=== PATIENT | female | born 1990 | race Caucasian/White ===

== ENCOUNTER → 2023-09-10 12:12 | Outpatient (BNVA) | payer OTHER, SELFPAY | PROVIDERS: PCP Family Medicine; Visit Provider Internal Medicine Rheumatology | DX: Z79.899 Other long term (current) drug therapy (principal); M19.90 Unspecified osteoarthritis, unspecified site | CPT/HCPCS: 36415; 72202; 73130; 73562; 73630; 80076; 82306; 82565; 83036; 85025; 85651; 86140; 86200; 86431; 86480; 86704; 86803; 86812; 87340 ==

== ENCOUNTER → 2024-02-25 13:34 | Outpatient (BNVA) | payer OTHER, SELFPAY | PROVIDERS: PCP Family Medicine; Visit Provider Obstetrics & Gynecology | DX: Z87.42 Personal history of other diseases of the female genital tract (principal); N94.6 Dysmenorrhea, unspecified; N92.0 Excessive and frequent menstruation with regular cycle; Z98.890 Other specified postprocedural states; D25.9 Leiomyoma of uterus, unspecified | CPT/HCPCS: 76830 ==

== ENCOUNTER → 2024-04-14 15:14 | Outpatient (BNVA) | payer OTHER, SELFPAY | PROVIDERS: PCP Family Medicine; Visit Provider Internal Medicine | DX: M06.041 Rheumatoid arthritis without rheumatoid factor, right hand (principal); M06.042 Rheumatoid arthritis without rheumatoid factor, left hand | CPT/HCPCS: 36415; 80076; 82565; 85025; 85651; 86140 ==

== ENCOUNTER 2024-06-07 11:18 | Observation (INO) | payer OTHER, SELFPAY ==
--- NOTE | 2024-05-30 14:27 | ANES.PREANE2 ---
Pre-Anesthetic Assessment Height/Weight: Height 5 ft 9 in Preop Diagnosis: Dysmenorrhea Operation Date: 06/07/24 07:10 Proposed Procedures p Total Vaginal Hysterectomy 13352, D25.1(Not Applicable) - Andera Ferrari MD Was Beta Any taken within 24 hours: N/A Was Clonidine taken within 24 hours: N/A Social Tobacco and No alcohol Exam alert, oriented x 3, clear to auscultation bilaterally and regular rate & rhythm Airway Submandibular: within normal limits Cervical ROM: within normal limits Mallampati: Class II Dentition: full Anesthetic Plan ASA status: 2 Anesthesia: General Other: No prior issues with anesthesia Plan to be n.p.o. at midnight prior to surgery History of rheumatoid arthritis, states it is mainly in her back and legs. On chronic hydrocodone History of Paget's bone disease Current smoker METs greater than 4 Labs 04/14/2024 reviewed and acceptable for procedure Plan for general anesthesia Medications/Allergies Home Medications Medication Instructions Recorded Confirmed Last Taken Type clonazepam 1 mg tablet 1 mg PO DAILY 09/10/23 05/30/24 05/30/24 History diclofenac sodium 75 mg 75 mg PO BID 09/10/23 05/30/24 05/30/24 History tablet,delayed release gabapentin 100 mg capsule 100 mg PO TID 09/10/23 05/30/24 05/30/24 History hydrocodone 5 mg-acetaminophen 325 1 tab PO Q6H PRN Pain 09/10/23 05/30/24 05/30/24 History mg tablet quetiapine 50 mg tablet 50 mg PO DAILY 09/10/23 05/30/24 Unknown History metformin 500 mg tablet,extended 1,000 mg (2 x 500 mg) PO BID #360 01/13/24 05/30/24 05/29/24 Rx release 24 hr tabs acetaminophen 500 mg tablet 1,000 mg PO .[id number] 04/14/24 05/30/24 Unknown History (Tylenol Extra Strength) fexofenadine 180 mg tablet 180 mg PO DAILY 04/14/24 05/30/24 05/30/24 History fluticasone propionate 50 4 spray intranasal DAILY 04/14/24 05/30/24 05/29/24 History mcg/actuation nasal spray,suspension leflunomide 20 mg tablet 20 mg PO DAILY #90 tabs 04/14/24 05/30/24 05/30/24 Rx tirzepatide (weight loss) 2.5 2.5 mg (0.5 mL) SUBCUT Q7D 1 month 04/14/24 05/30/24 Unknown Rx mg/0.5 mL subcutaneous pen #2 mL injector (Zepbound) tirzepatide (weight loss) 5 mg/0.5 5 mg (0.5 mL) SUBCUT Q7D #2 mL 04/14/24 05/30/24 Unknown Rx mL subcutaneous pen injector (Zepbound) tizanidine 4 mg tablet 8 mg PO BEDTIME 05/30/24 05/30/24 05/29/24 History Allergies Allergy/AdvReac Type Severity Reaction Status Date / Time amoxicillin Allergy Severe ALGY-Hives Verified 05/30/24 10:44 [facility] Anesthesia Medical History Seronegative rheumatoid arthritis of both hands Inflammatory back pain Inflammatory arthritis History of Paget's disease of bone ?? Joint pain Depression with anxiety Neuropathy Muscle spasms of lower extremity Family History Mother Uterine cancer Stroke Hypertension Grandmother Thyroid disease Ovarian cancer Grandfather Stroke Diabetes Father Diabetes Other Cancer Lupus (systemic lupus erythematosus) Rheumatoid arthritis Denies family history of Colon cancer Prostate cancer Heart disease Hyperlipidemia Chronic kidney disease (CKD) Breast cancer Lung disease Social History Smoking and tobacco/nicotine status: former use of tobacco/nicotine Alcohol intake: never Data Anesthesia Cardiac Studies: No Data to Display
[2024-06-07] VITALS (9 sets, daily range): BP systolic 123–151; BP diastolic 75–98; PULSE 71–110; RESP 15–18; TEMP 36.1–36.9; O2SAT 92–98; BMI 46.5
[2024-06-07 07:41] LABS: OR HCG Qualitative Urine Negative (Negative)
[2024-06-07 07:52] LABS: Glucose Point of Care 116 mg/dL (70-110)
[2024-06-07] MEDS: scopolamine 1 mg PATCH 1 PATCH TRANSDERMA (07:54)
[2024-06-07] MEDS: VANCOMYCIN ADD-Vantage 1,000 MG in 0.9% NaCl ADD-Vantage 250 ML 250 MG IV (07:56)
[2024-06-07] MEDS: sodium chloride 0.9% 1,000 ML 30 ML IV (07:56)
[2024-06-07 08:05] LABS: Basophils % 0.6 %; Eosinophils % 1.2 %; Hematocrit 41.2 % (36-47); Lymphocytes # 0.8 10^3/uL (0.8-4.8); Mean Corpuscular HGB Conc 33.5 g/dL (30-55); Mean Corpuscular Hemoglobin 29.6 pg (27-33); Mean Corpuscular Volume 88.4 fl (85-98); Mean Platelet Volume 12.4 fL (7.4-10.4); Monocytes # 0.4 10^3/uL (0.2-0.9); Monocytes % 10.9 %; Neutrophils % 63.7 %; Nucleated Red Blood Cells % 0 %; Platelet Count 153 10^3/cmm (157-399); Red Blood Count 4.66 10^6/uL (3.85-5.65); Red Cell Distribution Width 13.1 % (12.1-15.1)
[2024-06-07 08:11] LABS: Bilirubin Urine Negative (Negative); Blood Urine 1+ (Negative); Glucose Urine UA Negative (Normal); Ketones Urine 2+ (Negative); Leukocyte Esterase Urine Negative (Negative); Nitrate Urine Negative (Negative); Protein Urine Trace (Negative); Urine Appearance Clear (CLEAR); Urine Color Yellow (Yellow)
[2024-06-07 08:14] LABS: Add Urine Microscopic? YES; Bacteria Urine None Seen /hpf; Squamous Epithelial Cell Urine 0-5 /hpf (0-5); WBC Urine 0-5 /hpf (0-5)
[2024-06-07 08:19] LABS: Alanine Aminotransferase 22 U/L (0-33); Alkaline Phosphatase 96 U/L (35-105); Anion Gap 17.4 (5-19); Aspartate Amino Transferase 24 U/L (0-32); Blood Urea Nitrogen 12 mg/dL (6-20); Carbon Dioxide 22 mmol/L (22-29); Chloride 102 mmol/L (98-107); Creatinine Clr Calc Pharmacy 203.9486; Globulin 2.8 g/dL (1.3-4.6); Glomerular Filtration Rate 115.1 mL/min (90-130); Glucose 133 mg/dL (65-115); Osmolality Calculated 288 mOsm/kg (285-295); Potassium 3.4 mmol/L (3.5-5.1); Sodium 138 mmol/L (136-145); Total Bilirubin 0.2 mg/dL (0.15-1.2); Total Protein 6.8 g/dL (6.6-8.7)
--- NOTE | 2024-06-07 08:53 | W.PM.OPSUD ---
Surgery/Procedure H&P Update DATE OF PROCEDURE: June 07, 2024 DATE H&P PERFORMED: 05/30/24 H&P UPDATE INFORMATION: I have reviewed H&P completed within last 30 days, I have examined patient prior to procedure and No changes to prior documentation PREOP DIAGNOSIS: Uterine fibroid, dysmenorrhea, pelvic pain PLANNED PROCEDURE: Operation Date: 06/07/24 09:00 Proposed Procedures p Total Vaginal Hysterectomy 00771, D25.1(Not Applicable) - Andrea Ferrari MD
--- NOTE | 2024-06-07 09:10 | P.ANESUD_ITS ---
Pre-Anesthetic Update Pre-Anesthetic Assessment: Date of Surgery/Procedure: 06/07/24 Preop Ileana gnosis: Uterine fibroid, dysmenorrhea, pelvic pain Proposed Procedure: Operation Date: 06/07/24 09:00 Proposed Procedures p Total Vaginal Hysterectomy 63775, D25.1(Not Applicable) - Andrea Ferrari MD Any changes to Pre-Anesthetic Assessment?: No Last Intake: Intake Last Liquid Date 06/06/24 Last Liquid Time 23:20 Last Solid Date 06/06/24 Last Solid Time 18:00 Labs Last 48hrs: Short CBC 06/07/24 Range/Units 07:58 WBC 3.30 (3.29-11.43) 10^ 3/uL Hgb 13.80 (11.27-16.99) g/ dL Hct 41.2 (36-47) % MCV 88.4 (85-98) fl Plt Count 153 L (157-399) 10^3/c mm Neut % (Auto) 63.7 % Neut # (Auto) 2.10 (1.8-7.7) 10^3/u L BMP 06/07/24 07:48 Sodium 138 Potassium 3.4 L Chloride 102 Carbon Dioxide 22 BUN 12 Creatinine 0.6 Glucose 133 H Calcium 8.0 L Liver Function 06/07/24 Range/Units 07:48 Total Bilirubin 0.2 (0.15-1.2) mg/dL AST 24 (0-32) U/L ALT 22 (0-33) U/L Alkaline Phosphata se 96 (35-105) U/L Albumin 4.0 (3.5-5.2) g/dL Urine 06/07/24 Range/Units 07:20 Urine Color Yellow (Yellow) Urine Appearance Clear (CLEAR) Urine pH 6.0 (5-7) Ur Specific Gravit y 1.030 (1.005-1.030) Urine Protein Trace A (Negative) Urine Glucose (UA) Negative (Normal) Urine Ketones 2+ H (Negative) Urine Nitrate Negative (Negative) Urine Bilirubin Negative (Negative) Ur Leukocyte Kenisha ase Negative (Negative) Urine RBC 3-5 (0-2) /hpf Urine WBC 0-5 (0-5) /hpf Vitals: Temperature 97 F L 06/07/24 07:27 Temperature Source Temporal Artery S can 06/07/24 07:27 Pulse Rate 110 H 06/07/24 07:27 Respiratory Rate 16 06/07/24 07:27 Blood Pressure 149/98 06/07/24 07:27 Blood Pressure Priti n 115 06/07/24 07:27 Pulse Oximetry 96 06/07/24 07:27 Oxygen Delivery Me thod Room Air 06/07/24 07:27 Exam: Pre-Anes Outpt Exam: alert, oriented x 3, clear to auscultation bilaterally and regular rate & rhythm Cardiac Studies: No Data to Display
[2024-06-07] MEDS: levofloxacin-dextrose 5 % 500 MG/100 ML PREMIX 100 MG IV (09:15)
[2024-06-07] MEDS: lidocaine-epi 2% PF 1:200,000 20 mL SDV INJECTION (10:01)
--- NOTE | 2024-06-07 11:43 | W.PM.BPON ---
Date of Procedure: 06/07/24 Surgeon: Andrea Ferrari MD Middleware Solutions Architect(s): Dr. Gregory Lafleur Procedure(s) performed: Total vaginal hysterectomy Findings of the procedure(s): Large uterus Estimated blood loss: 600 mL Specimen(s) removed: Uterus Post-operative diagnosis: Status post TVH
--- NOTE | 2024-06-07 11:44 | P.OP_ITS ---
Operative Report Date of procedure: June 07, 2024 Post-op diagnosis: Abnormal uterine bleeding unresponsive to medical management Procedure done: Total vaginal hysterectomy Surgeon: Andrea Ferrari MD Estimated blood loss (mL): 600 IV fluids (mL): 800 Urine output (mL): 300 Complications: Bleeding Procedure: After informed consent and risks, benefits, indications and alternatives reviewed with the patient was taken to the operating room. The patient was placed in dorsal lithotomy position prepped, and draped in the usual sterile fashion. The pre-procedure timeout verifying the correct patient, procedure, site and side, could not requirements was performed and acknowledge by the OR team. A Barba catheter was placed. A Bookwalter vaginal retractor was placed into the vagina in usual manner visualize the cervix. Cervix was grasped with a single tooth tenaculum and circumferentially infiltrated with 2% lidocaine with epinephrine. Then cervix was circumferentially incised with bovie and the bladd er was dissected off the pubovesical cervical fascia anteriorly with a sponge stick and Metzenbaum scissors. The anterior peritoneal reflection was identified and the anterior cul-de-sac was entered sharply with Metzenbaum scissors. The same procedure was performed posteriorly and a posterior colpotomy was made through the posterior cul-de-sac space without difficulty and the posterior blade of the Bookwalter vaginal retractor was advanced posteriorly into the cul-de-sac. At this time, the left and right uterosacral ligaments were isolated and ligated with 0 Vicryl. The LigaSure device was placed over the uterosacral ligaments on either side and was then used in a serial fashion up through the cardinal ligaments bilaterally cross-clamped, cut, and sealed with the LigaSure device. Finally, the uterine arteries were cross-clamped, cut, sealed and ligated with the LigaSure device. Hemostasis was assured. The broad ligaments were then serially clamped, sealed and cut with the LigaSure device on both sides. Excellent hemostasis was visualized. Both cornua were clamped, sealed and cut with the LigaSure device. Then the pedicles were then suture ligated with excellent hemostasis. The uterus was excised and submitted for pathologic evaluation. No other abnormalities were noted in the pelvic cavity. The peritoneum was then closed in a pursestring fashion with 0 Vicryl suture. The vaginal cuff angles were closed with [id number] #0 Vicryl suture on both sides and transfixed with the ipsilateral cardinal and uterosacral ligaments. The remainder of the vaginal cuff was closed with #0 Vicryl in a running locked fashion. At this time, instruments were removed from the vagina at hemostasis assured. Barba catheter was then placed yielding clear evan urine. A vaginal packing was placed and the patient was taken out of dorsal lithotomy position and awakened from the general anesthesia. The patient tolerated the procedure well and was taken to the PACU recovery room in a stable condition. Sponge, lap, needle and instruments counts were correct x3.
--- NOTE | 2024-06-07 11:50 | ANE.PACU2 ---
Inpatient post-anesthesia follow up: Airway intact: Yes Vital signs: Temperature 98.0 F Pulse Rate 85 Respiratory Rate 15 Blood Pressure 151/85 Pulse Oximetry 94 Oxygen Delivery Me thod Room Air Oxygen Flow Rate Fraction of Inspir ed Oxygen Hydration adequate: Yes Nausea and vomiting: No Pain level: 1 Mental status: Baseline
[2024-06-07] MEDS: ketorolac 30 mg/mL INJ IVP ×2 (12:21→18:09)
[2024-06-07] MEDS: dextrose 5%-lactated ringers 1,000 ML 125 ML IV (12:21)
[2024-06-07] MEDS: HYDROcodone-acetaminophen 5-325 mg Tablet PO ×2 (15:16→20:59)
[2024-06-07] MEDS: docusate sodium 100 mg Capsule PO (18:09)
[2024-06-07] MEDS: metformin XR 500 MG Tablet 1000 MG PO (18:38)
[2024-06-07] MEDS: gabapentin 100 mg Capsule PO (21:00)
[2024-06-07] MEDS: tizanidine 4 mg Tablet 8 MG PO (21:00)
[2024-06-07] MEDS: simethicone 80 mg Chew PO (22:44)
[2024-06-08] VITALS: BP 147/62; PULSE 64; RESP 18; TEMP 36.8; O2SAT 96
[2024-06-08] MEDS: ketorolac 30 mg/mL INJ IVP ×2 (00:35→06:04)
[2024-06-08 05:00] VITALS: BP 121/77; PULSE 97; RESP 16; TEMP 36.6; O2SAT 94
[2024-06-08] MEDS: HYDROcodone-acetaminophen 5-325 mg Tablet PO (06:18)
--- NOTE | 2024-06-08 06:19 | PC.NURSE ---
Vaginal packing removed. Patient tolerated the procedure well. Scant bleeding noted on packing.
[2024-06-08 06:24] LABS: Hematocrit 36.3 % (36-47); Mean Corpuscular HGB Conc 32.5 g/dL (30-55); Mean Corpuscular Hemoglobin 29.1 pg (27-33); Mean Corpuscular Volume 89.6 fl (85-98); Mean Platelet Volume 12.5 fL (7.4-10.4); Platelet Count 144 10^3/cmm (157-399); Red Blood Count 4.05 10^6/uL (3.85-5.65); White Blood Count 6.43 10^3/uL (3.29-11.43)
--- NOTE | 2024-06-08 09:20 | PM.OBGYDC ---
Discharge Providers WASTE/MATERIALS EXCHANGE SPECIALIST Date of Admission: 06/07/24 11:18 Date of Discharge: 06/08/24 Attending Provider at Admission: Andrea Ferrari MD Attending Provider at Discharge: Andrea Ferrari MD Primary Care Provider: Luis Fernando Che MD Reason for Visit Reason for Visit: D25.1 Hospital Course Hospital Course This is Donte 33-year-old female with a history of menorrhagia unresponsive to medical management and uterine fibroid admitted for planned total vaginal hysterectomy. Procedure was performed without complication. Overnight observation was uneventful. She is afebrile and hemodynamically stable postoperative day 1. Tolerating diet well. Ambulating without difficulty. She was counseled regarding pelvic rest for 6 weeks (no sex, no tampons, no vaginal douches). Return to the emergency room if any fever, increased bleeding or pain. Physical Exam Narrative: GA: Alert and oriented ?3. HEENT: WNL. Heart: Regular rate and rhythm. Lungs: Clear to auscultation bilaterally. Abdomen: Bowel sounds present, nontender. PERINATAL EDUCATOR: spotting bleeding. Extremities: No edema, no cyanosis, no calves pain. Urinary Catheter Management: Barba: Cath Placed During This Visit: yes, but has since been removed by the nurse Reason for Continuing Indwelling Catheter: Decision to DC Catheter Urinary Catheter Date of Insertion: 06/07/24 Urinary Catheter Time of Insertion: 09:52 Date Urinary Catheter Removed: 06/08/24 Time Urinary Catheter Discontinued: 06:15 History History History 1 Term 1 0 Miscarriages/Ectopic 0 Living Children 1 Discharge Data Studies Completed and Pending Pending at discharge Category Date Time Status Pathology: Surgical [PTH] Routine Pth 06/07/24 10:43 Received Laboratory Results WBC 6.43 10^3/uL (3.29-11.43) 06/08/24 06:00 RBC 4.05 10^6/uL (3.85-5.65) 06/08/24 06:00 Hgb 11.80 g/dL (11.27-16.99) 06/08/24 06:00 Hct 36.3 % (36-47) 06/08/24 06:00 MCV 89.6 fl (85-98) 06/08/24 06:00 MCH 29.1 pg (27-33) 06/08/24 06:00 MCHC 32.5 g/dL (30-55) 06/08/24 06:00 RDW 13.0 % (12.1-15.1) 06/08/24 06:00 Plt Count 144 10^3/cmm (157-399) L 06/08/24 06:00 MPV 12.5 fL (7.4-10.4) H 06/08/24 06:00 Neut % (Auto) 63.7 % 06/07/24 07:58 Lymph % (Auto) 23.0 % 06/07/24 07:58 [place] % (Auto) 10.9 % 06/07/24 07:58 Eos % (Auto) 1.2 % 06/07/24 07:58 Baso % (Auto) 0.6 % 06/07/24 07:58 Neut # (Auto) 2.10 10^3/uL (1.8-7.7) 06/07/24 07:58 Lymph # (Auto) 0.8 10^3/uL (0.8-4.8) 06/07/24 07:58 [place] # (Auto) 0.4 10^3/uL (0.2-0.9) 06/07/24 07:58 Eos # (Auto) 0.0 10^3/uL (0.0-0.8) 06/07/24 07:58 Baso # (Auto) 0.0 10^3/uL (0.0-0.1) 06/07/24 07:58 Nucleated RBC % (auto) 0 % 06/07/24 07:58 Nucleated RBCs # 0.0 /100WBC 06/07/24 07:58 Sodium 138 mmol/L (136-145) 06/07/24 07:48 Potassium 3.4 mmol/L (3.5-5.1) L 06/07/24 07:48 Chloride 102 mmol/L (98-107) 06/07/24 07:48 Carbon Dioxide 22 mmol/L (22-29) 06/07/24 07:48 Anion Gap 17.4 (5-19) 06/07/24 07:48 BUN 12 mg/dL (6-20) 06/07/24 07:48 Creatinine 0.6 mg/dL (0.5-0.9) 06/07/24 07:48 GFR Calculation 115.1 mL/min (90-130) 06/07/24 07:48 Glucose 133 mg/dL (65-115) H 06/07/24 07:48 POC Glucose 116 mg/dL (70-110) H 06/07/24 07:47 Calculated Osmolality 288 mOsm/kg (285-295) 06/07/24 07:48 Calcium 8.0 mg/dL (8.5-10.5) L 06/07/24 07:48 Total Bilirubin 0.2 mg/dL (0.15-1.2) 06/07/24 07:48 AST 24 U/L (0-32) 06/07/24 07:48 ALT 22 U/L (0-33) 06/07/24 07:48 Alkaline Phosphatase 96 U/L (35-105) 06/07/24 07:48 Total Protein 6.8 g/dL (6.6-8.7) 06/07/24 07:48 Albumin 4.0 g/dL (3.5-5.2) 06/07/24 07:48 Globulin 2.8 g/dL (1.3-4.6) 06/07/24 07:48 Urine Color Yellow (Yellow) 06/07/24 07:20 Urine Appearance Clear (CLEAR) 06/07/24 07:20 Urine pH 6.0 (5-7) 06/07/24 07:20 Ur Specific Ira 1.030 (1.005-1.030) 06/07/24 07:20 Urine Protein Trace (Negative) A 06/07/24 07:20 Urine Glucose (UA) Negative (Normal) 06/07/24 07:20 Urine Ketones 2+ (Negative) H 06/07/24 07:20 Urine Blood 1+ (Negative) A 06/07/24 07:20 Urine Nitrate Negative (Negative) 06/07/24 07:20 Urine Bilirubin Negative (Negative) 06/07/24 07:20 Urine Urobilinogen 1.0 mg/dL (Negative) 06/07/24 07:20 Ur Leukocyte Esterase Negative (Negative) 06/07/24 07:20 Urine RBC 3-5 /hpf (0-2) 06/07/24 07:20 Urine WBC 0-5 /hpf (0-5) 06/07/24 07:20 Ur Squamous Epith Cells 0-5 /hpf (0-5) 06/07/24 07:20 Amorphous Sediment Not Reportable 06/07/24 07:20 Urine Bacteria None seen /hpf (NONE) 06/07/24 07:20 Hyaline Casts 0.40 /lpf 06/07/24 07:20 Urine HCG, Qual Negative (Negative) 06/07/24 07:20 Blood Type O Positive 06/07/24 07:48 Rho(D) Type Rh positive 06/07/24 07:48 Antibody Screen Negative 06/07/24 07:48 Vitals Last Vital Signs Temp 97.9 F 06/08/24 05:00 Pulse 97 06/08/24 05:00 Resp 16 06/08/24 05:00 BP 121/77 06/08/24 05:00 Pulse Ox 94 06/08/24 05:00 O2 Del Method Room Air 06/08/24 05:00 Results Labs OB ([facility]): Blood Type O Positive 06/07/24 Antibody Screen Negative 06/07/24 Hct 36.3 % (36-47) 06/08/24 Hgb 11.80 g/dL (11.27-16.99) 06/08/24 Rho(D) Type Rh positive 06/07/24 Plt Count 144 10^3/cmm (157-399) L 06/08/24 Hep Bs Antigen Non-reactive (Nonreactive) 09/10/23 Hep B Core Total Ab Non-reactive (Nonreactive) 09/10/23 Hepatitis C Antibody Non-reactive (Nonreactive) 09/10/23 Hemoglobin A1c 4.9 % (4.0-6.0) 09/10/23 Discharge Plan Discharge Patient Disposition: Home Condition: Stable Prescriptions: New hydrocodone-acetaminophen 5-325 mg tablet 1 tab PO Q4H PRN (Reason: pain) Qty: 20 0RF ibuprofen 800 mg tablet 800 mg PO TID PRN (Reason: pain) Qty: 60 0RF acetaminophen 325 mg capsule 325 mg PO Q4H PRN (Reason: fever or pain) Qty: 60 0RF Continued hydrocodone-acetaminophen 5-325 mg tablet 1 tab PO Q6H PRN (Reason: Pain) diclofenac sodium 75 mg tablet,delayed release (DR/EC) 75 mg PO BID gabapentin 100 mg capsule 100 mg PO TID quetiapine 50 mg tablet 50 mg PO DAILY clonazepam 1 mg tablet 1 mg PO DAILY metformin 500 mg tablet extended release 24 hr 1,000 mg PO BID Qty: 360 1RF acetaminophen [Tylenol Extra Strength] 500 mg tablet 1,000 mg PO .[id number] leflunomide 20 mg tablet 20 mg PO DAILY Qty: 90 1RF fexofenadine 180 mg tablet 180 mg PO DAILY fluticasone propionate 50 mcg/actuation spray,suspension 4 spray intranasal DAILY Zepbound 2.5 mg/0.5 mL pen injector 2.5 mg SUBCUT Q7D 30 Days Qty: 2 0RF Rx Instructions: inject 2.5mg weekly for one month than start 5mg Zepbound 5 mg/0.5 mL pen injector 5 mg SUBCUT Q7D Qty: 2 1RF Rx Instructions: inject 5mg weekly tizanidine 4 mg tablet 8 mg PO BEDTIME quetiapine [Seroquel XR] 150 mg Tablet Extended Release 24 Hr 150 mg PO DAILY Discharge Orders: Discharge Order (Routine); Ordered 06/08/24 Ordered By: Andrea Ferrari Referrals: Andrea Ferrari MD [Physician] - 07/21/24 2:30 pm Julianne Madrigal APN, WILFRIDO [Nurse Practitioner] - 06/23/24 11:30 am Discharge Diet: Usual diet Discharge Activity: Limit activity as instructed Patient Instructions: Acute Wound Care (DC), Opioid Safety (DC), Vaginal Hysterectomy (GEN), OB Discharge Report, OB Food/Drug Interaction Guide, Opioid Safety, Post Anesthesia Care Activity Restrictions/Additional Instructions: 1. Please call [facility] [place] [facility] on next working day to make your post-operative appointment in 2 weeks. 2. Please stay home until you come back to the clinic on first post-hospatilization check up. 3. Please follow instructions on your medications CAREFULLY. 4. If you have abdominal incision, do not cover it unless dressing is necessary because of drainage. OK to shower, but avoid bath. Leave steri-strips until they fall off. If they are still on one week after surgery, you may remove them. 5. If you had vaginal surgery or vaginal repair, Dr. Ferrari may instruct you to take SITZ bath. 6. Yellow, blood tinged odorous vaginal discharge is usually normal after hysterectomy or vaginal surgeries. 7. No SEXUAL INTERCOURSE, tampons, or douches until you are completely released from the post-operative care. 8. Avoid constipation by eating right and maybe using some Metamucil or Milk of Magnesia. 9. All prescription refills are given during the working hours. Please do no wait till it runs out. Call the clinic at [phone] before your medication runs out. The clinic will get in touch with your doctor to prescribe medications if necessary. 10. Please remain within 40 mile radius from our hospital because emergencies do happen now and then during the post-operative period. 11. If you have stairs at home, take one step at a time slowly and minimize the number of trips. It helps to stay in one floor for the next few days. No lifting except what you can lift by one hand until you are released from the post-operative care. 12. Driving is discouraged until you are well healed. It may be 3-4 weeks before you feel strong enough to drive. You should be able to turn and look through the rear window without pain and you should be able to push the brake pedal very hard without pain before you drive. No fast rules, but SAFETY should be your primary concern. DO NOT drive if you are on sedating medications such as narcotics. 13. Call the clinic (during working hours) to make urgent appointment or go to the Emergency room, if any of the following occurs: i. Vaginal bleeding becomes heavy, more than a period. ii. Incision becomes red and sore, or drains pus. iii. Your TEMPERATURE is over 100.4F or you have chill. iv. IV site becomes red and swollen (a little ``knot?? is usually OK) v. Persistent nausea and vomiting vi. Persistent constipation or diarrhea vii. Rash or allergic reaction to medications. Discharge Attestations WASTE/MATERIALS EXCHANGE SPECIALIST Time Spent in Discharge Care*: greater than 30 min Coding Level of Care Code Acute Code for Chg Fwd
[2024-06-08] MEDS: fluticasone nasal spray 16gm Btl 4 SPRAY INTRANASAL (09:27)
[2024-06-08] MEDS: gabapentin 100 mg Capsule PO (09:27)
[2024-06-08] MEDS: docusate sodium 100 mg Capsule PO (09:28)
[2024-06-08] MEDS: ibuprofen 800 mg tablet PO (09:28)
[2024-06-08] MEDS: metformin XR 500 MG Tablet 1000 MG PO (09:28)
[2024-06-08] MEDS: fexofenadine 60 mg Tablet 180 MG PO (10:36)
[2024-06-08 10:37] VITALS: BP 131/79; PULSE 71; RESP 16; TEMP 36.4; O2SAT 95
== END 2024-06-08 10:40 | disposition home or self-care (01) ==
LOC: OBGYN 11:19
PROVIDERS: Admitting Provider Obstetrics & Gynecology; PCP Family Medicine; Visit Provider Obstetrics & Gynecology
PROC: (CPT 58260; principal; 2024-06-07 09:00)
DX: D25.1 Intramural leiomyoma of uterus (principal); N87.9 Dysplasia of cervix uteri, unspecified; N72 Inflammatory disease of cervix uteri; N94.5 Secondary dysmenorrhea; N88.8 Other specified noninflammatory disorders of cervix uteri; N93.9 Abnormal uterine and vaginal bleeding, unspecified; M88.9 Osteitis deformans of unspecified bone; M06.89 Other specified rheumatoid arthritis, multiple sites; Z79.899 Other long term (current) drug therapy; Z88.0 Allergy status to penicillin; Z87.891 Personal history of nicotine dependence; Z80.41 Family history of malignant neoplasm of ovary; Z80.49 Family history of malignant neoplasm of other genital organs
CPT/HCPCS: 58260; 36415; 36416; 80053; 81001; 81025; 82962; 85025; 85027; 86850; 86900; 88307; A4216; G0378; J1100; J1171; J1200; J1885; J1956; J2250; J2405; J2704; J3010; J3370; J3490; J7030; J7050; J7121

== ENCOUNTER → 2024-11-23 15:30 | Outpatient (BNVA) | payer OTHER, SELFPAY | PROVIDERS: PCP Family Medicine; Visit Provider Internal Medicine Rheumatology | DX: Z79.899 Other long term (current) drug therapy (principal); M06.041 Rheumatoid arthritis without rheumatoid factor, right hand; M06.042 Rheumatoid arthritis without rheumatoid factor, left hand | CPT/HCPCS: 36415; 80076; 82565; 85025; 85651; 86140 ==